=== PATIENT | male | born 1975 | race Caucasian/White ===

== ENCOUNTER → 2017-08-16 10:21 | Outpatient (CLI) | payer OTHER, SELFPAY ==
[2017-08-16 12:20] LABS: Anion Gap 6 (5-15); BUN 10 mg/dL (7-18); BUN/Creat Ratio 11.2 RATIO (10-20); Calcium,Total 8.6 mg/dL (8.5-10.1); Chloride 104 mmol/L (98-107); Creatinine, Serum 0.89 mg/dL (0.70-1.30); EST Glomerular Filtration Rate 100 mL/min (>60); Est Glom Filt Rate - Afr Amer 121 mL/min (>60); Glucose 95 mg/dL (74-106); Potassium 3.9 mmol/L (3.5-5.1); Sodium Level 138 mmol/L (136-145)
== END ==
PROVIDERS: Family Provider Family Medicine; PCP Family Medicine; Visit Provider Family Medicine
DX: I10 Essential (primary) hypertension (principal)
CPT/HCPCS: 36415; 80048

== ENCOUNTER 2021-12-17 02:02 | Emergency (ER) | payer OTHER, SELFPAY ==
[2021-12-17 02:02] VITALS: BP 143/85; PULSE 108; RESP 18; TEMP 37; O2SAT 96; BMI 32.7
--- NOTE | 2021-12-17 02:25 | EX.ED.GENINJ ---
HPI History of Present Illness Chief Complaint: Fall Informant: patient Onset/Context/Timing Onset: Today Narrative Narrative: Patient is a 45-year-old male with history of hypertension and depression presenting with right knee pain. Patient states around 530 this afternoon he tripped over his dog. Has been having posterior/lateral knee pain since. He states he also has some mild ankle pain. He feels that the pain spasms in his knee area. Not take anything for pain prior to arrival. Has had a remote injury to his knee in the past. Had to call EMS is not been able to put any weight on his leg. Normally is ambulatory. Denies any associated numbness or tingling. No other complaints at this time. [facility] Medical History (Updated 12/17/21 @ 05:[address] Tiki Torres DO) Anxiety HTN (hypertension) Home Medications benzonatate 100 mg capsule 2 cap PO TID PRN Cough 12/17/21 [History Last Taken Unknown] diazepam 5 mg tablet (Valium) 5 mg PO TID PRN muscle spasm #10 tabs 12/17/21 [Rx Last Taken Unknown] escitalopram oxalate 10 mg tablet 10 tab DAILY 12/17/21 [History Last Taken Unknown] lisinopril 20 mg-hydrochlorothiazide 12.5 mg tablet 1 tab DAILY 12/17/21 [History Last Taken Unknown] oxycodone-acetaminophen 5 mg-325 mg tablet (Percocet) 1 tab PO Q6H PRN pain 5 days #20 tabs 12/17/21 [Rx Last Taken Unknown] prednisone 20 mg tablet 20 tab DAILY 12/17/21 [History Last Taken Unknown] Allergy/AdvReac Type Severity Reaction Status Date / Time No Known Allergies Allergy Verified 12/17/21 02:06 Social History Smoking Status: Current every day smoker tobacco type: cigarettes ROS ROS ED Constitutional Constitutional ED: Denies fever(s) Eyes Eyes: Denies change in vision or eye pain ENT ENT ED: Denies dental pain, mouth lesions or nasal trauma Cardiovascular Cardiovascular: Denies chest pain or syncope Respiratory/Chest Respiratory/Chest: Denies cough or dyspnea Gastrointestinal Gastrointestinal: Denies abdominal pain or nausea Genitourinary Genitourinary ED: Denies dysuria or hematuria Musculoskeletal Musculoskeletal: Reports other Details: right knee pain ; Denies arthralgias, back pain or myalgias Integumentary Denies Abrasions or wounds Neurologic Neurologic: Denies headache(s), paresthesias or weakness Psychiatric Psychiatric: Denies anxiety or depression Hematologic/Lymphatic Hematologic/Lymphatic: Denies easy bleeding or easy bruising EXAM Physical Exam Const Vital Signs: 12/17/21 02:02 Temperature 98.6 F Temperature Source Temporal Pulse Rate 108 H Respiratory Rate 18 Blood Pressure 143/85 H Blood Pressure Mean 104 Pulse Ox 96 Oxygen Delivery Method Room Air Positive well nourished and well developed Constitutional Narrative: Acute distress secondary to leg pain General Appearance ED: well developed HEENT Reports TM's clear atraumatic Tympanic Membrane ED: Yes TM's clear Eyes PERRL and EOMs intact bilaterally Chest Wall inspection of chest normal Resp normal respiratory effort and clear to auscultation bilaterally Cardio regular rhythm and no murmurs Rate: regular rate GI normal to inspection, nondistended, normoactive bowel sounds Extremity Extremity Narrative: No obvious deformity of the lower extremities. No palpable pain to the hip. Patient significant knee pain with attempted range of motion of the hip or the leg. No obvious deformity of the knee. Tenderness is worse over the fibular head/lateral aspect of the knee. Patient is able to raise his straight leg off the bed. Mild tenderness of the right lateral ankle slightly ventral to the lateral malleolus. No pinpoint bony tenderness appreciated. Ankle is stable. No bony foot tenderness. Patient does have visualized fasciculations of the medial quadricep muscles with corresponding pain. Compartments are soft. Normal Jimenez test. General Extremety ED: Negative for deformity General Extremity: Negative for deformity Neuro oriented x3, moves all extremities, no focal motor deficits and no sensory deficits noted Psych mental status grossly normal Skin no rashes or lesions noted and no wounds PROC Procedures Lower Extremity Splints Lower Extremity Splint: Orthoglass Splint Fabrication: Fabricated (Posterior slab) Location: Right MDM MDM MDM Narrative Medical decision making narrative: Patient is evaluated for right knee pain after mechanical fall. Patient is quite uncomfortable secondary to pain. He is given IV morphine before he will tolerate removal of immobilization device and physical exam. Patient significant tenderness of the lateral knee and proximal fibula. X-rays obtained which are interpreted by myself as well as radiology do show an acute nondisplaced viral fracture of the proximal fibular shaft. Patient is given additional doses of IV pain medication as well as a dose of oral Valium as I believe a large part of his pain is muscle spasms. Case is discussed with Ortho on-call, Dr. Wheeler. He recommends nonweightbearing, posterior short leg splint and follow-up in 1 week. Patient is agreeable with this. Patient is given a prescription for oxycodone as well as Valium to help with his pain and spasms. Is counseled on the risk of sedation as well to avoid any alcohol use while taking these. He verbalizes agreement understanding with this plan. Patient discharged home in improved and stable condition. Does have improvement of pain after splint placement. Radiography Diagnostic Testing: Clinical Impression(s) from Imaging Studies Ankle X-Ray 12/17/21 03:06 IMPRESSION: No demonstrated fracture, dislocation, or destructive osseous lesion. Electronically Signed: Alphonse Dubose MD at 4:08 EDT , Knee X-Ray 12/17/21 03:06 IMPRESSION: Nondisplaced spiral fracture of the proximal fibular shaft. Electronically Signed: Alphonse Dubose MD at 4:10 EDT , Tibia/Fibula X-Ray 12/17/21 03:06 IMPRESSION: Nondisplaced spiral fracture of the proximal fibular shaft. Electronically Signed: Alphonse Dubose MD at 4:11 EDT , Discharge Plan Triage Chief Complaint: Fall ED Provider: Tiki Torres Dx/Rx/DC Orders Clinical Impression: Closed fracture of fibula, proximal, right, Fall on same level from tripping Instructions: Crutches Non Weight Bearing Dc, ED Fracture, Lower Extremity, ED Splint Care, Fiberglass Prescriptions: New diazepam [Valium] 5 mg tablet 5 mg PO TID PRN (Reason: muscle spasm) Qty: 10 0RF oxycodone-acetaminophen [Percocet] 5-325 mg tablet 1 tab PO Q6H PRN (Reason: pain) 5 Days Qty: 20 0RF No Action lisinopril-hydrochlorothiazide 20-12.5 mg tablet 1 tab DAILY Label Comments: TAKE 1 TABLET DAILY prednisone 20 mg tablet 20 tab DAILY Label Comments: TAKE 2 TABLETS BY MOUTH DAILY benzonatate 100 mg capsule 2 cap PO TID PRN (Reason: Cough) Label Comments: TAKE 1 CAPSULE BY MOUTH THREE TIMES DAILY NEEDED FOR 7 DAYS escitalopram oxalate 10 mg tablet 10 tab DAILY Label Comments: TAKE 1 TABLET DAILY Primary Care Provider: Donny Monroe Referrals: Monster Das DO [NON-STAFF] - Reji Wheeler MD [STAFF PHYSICIAN] - (Follow up in 1 week, call tomorrow to schedule ) Disposition Disposition: Home, Self Care
[2021-12-17] MEDS: Ondansetron 4 MG/2 ML Vial IV (02:32)
[2021-12-17] MEDS: morphine 8 MG/ML Syringe 6 MG IV (02:32)
--- NOTE | 2021-12-17 03:06 | RAD_ITS ---
EXAM: XR RIGHT KNEE, 3 VIEWS CLINICAL INDICATION: Injury/Pain Injury/Pain TECHNIQUE: Three views of the right knee. This report was created using [employer] report generation technology. COMPARISON: X-ray tibia and fibula. X-rays ankle. FINDINGS: BONES/JOINTS: There is an acute traumatic spiral fracture of the proximal fibular shaft, without demonstrated malalignment. Preservation of the joint space. No sclerotic or destructive changes observed. SOFT TISSUES: Unremarkable. No soft tissue swelling or gas. No radiopaque foreign body. RAD/Knee 3 Views IMPRESSION: Nondisplaced spiral fracture of the proximal fibular shaft. Electronically Signed: Alphonse Dubose MD at 4:10 EDT Reading Location ID and State: [facility] / [place] , Service support ,
--- NOTE | 2021-12-17 03:06 | RAD_ITS ---
EXAM: XR RIGHT TIBIA AND FIBULA, 2 VIEWS CLINICAL INDICATION: Injury/Pain Injury/Pain TECHNIQUE: Frontal and lateral views of the right tibia and fibula. This report was created using [employer] report generation technology. COMPARISON: X-ray knee. X-rays ankle. FINDINGS: BONES/JOINTS: There is an acute traumatic spiral fracture of the proximal fibular shaft, without demonstrated malalignment. Preservation of the joint space. No sclerotic or destructive changes observed. SOFT TISSUES: Unremarkable. No soft tissue swelling or gas. No radiopaque foreign body. RAD/Tibia & Fibula 2 Views IMPRESSION: Nondisplaced spiral fracture of the proximal fibular shaft. Electronically Signed: Alphonse Dubose MD at 4:11 EDT Reading Location ID and State: [facility] / [place] , Service support ,
--- NOTE | 2021-12-17 03:06 | RAD_ITS ---
EXAM: XR RIGHT ANKLE COMPLETE, 3 OR MORE VIEWS CLINICAL INDICATION: Injury/Pain Injury/Pain TECHNIQUE: Frontal, lateral and oblique views of the right ankle. This report was created using [employer] report generation technology. COMPARISON: None. FINDINGS: BONES/JOINTS: There is a plantar calcaneal spur and there is a posterior calcaneal enthesophyte at the insertion site of the Achilles'' tendon. No acute fracture. No subluxation. Normal alignment. Preservation of the joint space. No sclerotic or destructive changes observed. SOFT TISSUES: There is nonspecific soft tissue swelling. No radiopaque foreign body. RAD/Ankle min 3 Views IMPRESSION: No demonstrated fracture, dislocation, or destructive osseous lesion. Electronically Signed: Alphonse Dubose MD at 4:08 EDT Reading Location ID and State: [facility] / [place] , Service support ,
[2021-12-17] MEDS: Morphine 4 MG/ML Syringe IV ×2 (03:16→05:28)
[2021-12-17] MEDS: diazePAM 5 MG Tablet PO (05:28)
[2021-12-17 06:52] VITALS: BP 144/72; PULSE 78; RESP 17; O2SAT 98
== END 2021-12-17 06:54 | disposition home or self-care (01) ==
PROVIDERS: Emergency Provider Emergency Medicine; Visit Provider Emergency Medicine
DX: S82.831A Other fracture of upper and lower end of right fibula, initial encounter for closed fracture (principal); W01.0XXA Fall on same level from slipping, tripping and stumbling without subsequent striking against object, initial encounter; I10 Essential (primary) hypertension; F17.210 Nicotine dependence, cigarettes, uncomplicated; F41.9 Anxiety disorder, unspecified; Z79.899 Other long term (current) drug therapy
CPT/HCPCS: 29515; 73562; 73590; 73610; 96374; 96375; 96376; 99285; A4216; J2405

== ENCOUNTER → 2021-12-25 | Outpatient (CLI) | payer OTHER, SELFPAY ==
--- NOTE | 2021-12-25 10:51 | VDLE_ITS ---
Reason For Study: Pain RIGHT GSV is normal. CFV is compressible, spontaneous, phasic, competent and demonstrates normal augmentation. FV is compressible, spontaneous, phasic, competent and demonstrates normal augmentation. POP V is compressible, spontaneous, phasic, competent and demonstrates normal augmentation. T/P Trunk is compressible. PTV is compressible. RT PerV is compressible. Acute deep vein thrombosis is noted in the right soleus vein. Procedure This is a venous duplex using B-mode, color flow and spectral Doppler. Exam performed in department. A preliminary report was called and/or faxed to Chloe. VL/Venous Duplex US, Unilateral Interpretation Summary Acute deep vein thrombosis is noted in the right soleus vein. The remainder of the right lower extremity deep venous system is patent and compressible. Valvular competence ap pears intact within the proximal deep venous system on the right . The right great saphenous vein a ppears patent and compressible segmentally. Ordering Physician: Sathya Quigley Referring Physician: Donny Monroe Performed By: Johana Thomas RVT
== END | disposition home or self-care (01) ==
LOC: CVS 10:49
PROVIDERS: Referring Provider Orthopaedic Surgery; Visit Provider Orthopaedic Surgery
DX: M79.661 Pain in right lower leg (principal)
CPT/HCPCS: 93971